=== PATIENT | female | born 1990 | race American Indian/Alaskan Native ===

== ENCOUNTER 2017-08-24 22:09 | Emergency (ER) | payer MEDICAID, OTHER ==
[2017-08-24 22:33] VITALS: BP 139/78
[2017-08-24 23:13] LABS: ANION GAP 8.8; CHLORIDE,CL 107 mmol/L (101-111); SODIUM,NA 138 mmol/L (135-145)
--- NOTE | 2017-08-24 23:41 | EDM.PDOC ---
ED HPI GENERAL MEDICAL PROBLEM - General Chief Complaint: General Stated Complaint: [id number] LUNG PAIN Time Seen by Provider: 08/24/17 22:30 Source of Information: Reports: Patient History Limitations: Reports: No Limitations - History of Present Illness INITIAL COMMENTS - FREE TEXT/NARRATIVE: c/o of right upper chest sharp pain with breathing in, noticed first this am while stretching and yawning. No recent cold or cough. No hx PE. No shortness of breath , no fever, no injury. Pain does not radiate. Has not tried anything to alleviate discomfort Right Upper Chest Pain Score (Numeric/FACES): 5 - Related Data Allergies Allergy/AdvReac Type Severity Reaction Status Date / Time amoxicillin Allergy Rash Verified 08/24/17 22:33 Home Meds: Home Meds . 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 Musculoskeletal History: Reports: None Neurological History: Reports: None Psychiatric History: Reports: None Endocrine/Metabolic History: Reports: None Hematologic History: Reports: None Immunologic History: Reports: None Oncologic (Cancer) History: Reports: None Dermatologic History: Reports: None - Infectious Disease History Infectious Disease History: Reports: Chicken Pox - Past Surgical History Head Surgeries/Procedures: Reports: None Social & Family History - Tobacco Use Smoking Status *Q: Never Smoker Second Hand Smoke Exposure: Yes - Caffeine Use Caffeine Use: Reports: Coffee, Soda - Recreational Drug Use Recreational Drug Use: No ED ROS GENERAL - Review of Systems Review Of Systems: ROS reveals no pertinent complaints other than HPI. ED EXAM, GENERAL - Physical Exam Exam: See Below Exam Limited By: No Limitations General Appearance: Alert, No Apparent Distress Eye Exam: Bilateral Eye: EOMI Ears: Normal External Exam Nose: Normal Inspection Throat/Mouth: Normal Inspection Head: Atraumatic, Normocephalic Neck: Normal Inspection, Full Range of Motion Respiratory/Chest: No Respiratory Distress, Lungs Clear, Normal Breath Sounds Cardiovascular: Normal Peripheral Pulses, Regular Rate, Rhythm GI/Abdominal: Normal Bowel Sounds, Soft Back Exam: Normal Inspection Extremities: Normal Inspection, Normal Range of Motion Neurological: Alert, Oriented, Normal Cognition Psychiatric: Normal Affect Skin Exam: Warm, Dry, Intact, Normal Color Course - Vital Signs Last Recorded V/S: Last Vital Signs Temp 97.4 F 08/24/17 22:22 Pulse 61 08/24/17 22:22 Resp 18 08/24/17 22:22 BP 139/78 08/24/17 22:22 Pulse Ox 99 08/24/17 22:22 - Orders/Labs/Meds Orders: Active Orders 24 hr Category Date Time Status CXR [Chest 2V] [CR] Urgent Exams 08/24/17 22:38 Taken Labs: Laboratory Tests 08/24/17 08/24/17 08/24/17 Range/Units 22:48 22:48 22:48 WBC 9.3 (5.0-10.0) 10^3/uL RBC 4.46 (4.2-5.4) 10^6/uL Hgb 11.4 L (12.0-16.0) g/dL Hct 36.1 L (37.0-47.0) % MCV 80.9 (80-100) fL MCH 25.6 L (27.0-34.0) pg MCHC 31.6 L (33.0-35.0) g/dL Plt Count 340 (150-450) 10^3/uL Neut % (Auto) 54.8 (42.2-75.2) % Lymph % (Auto) 32.8 (20.5-50.1) % Wright % (Auto) 6.3 (2-8) % Eos % (Auto) 5.8 H (1.0-3.0) % Baso % (Auto) 0.3 (0.0-1.0) % D-Dimer, Quantitative 285 (0-400) ng/mL Sodium 138 (135-145) mmol/L Potassium 3.8 (3.6-5.0) mmol/L Chloride 107 (101-111) mmol/L Carbon Dioxide 26.0 (21.0-31.0) mmol/L Anion Gap 8.8 BUN 14 (7-18) mg/dL Creatinine 0.7 (0.6-1.3) mg/dL Est Cr Clr Drug Dosing 121.78 mL/min Estimated GFR (MDRD) > 60 BUN/Creatinine Ratio 20.00 Glucose 131 H (74-105) mg/dL Calcium 9.0 (8.4-10.2) mg/dl Total Bilirubin 0.3 (0.2-1.0) mg/dL AST 27 (10-42) IU/L ALT 23 (10-60) IU/L Alkaline Phosphatase 68 (42-121) IU/L Total Protein 8.6 H (6.7-8.2) g/dl Albumin 4.0 (3.2-5.5) g/dl Globulin 4.6 Albumin/Globulin Ratio 0.87 - Radiology Interpretation Free Text/Narrative:: CXR: Poor inspiratory effort, bibasilar subsegmental atelectasis Departure - Departure Time of Disposition: 23:39 Disposition: Home, Self-Care 01 Condition: Good Clinical Impression: Right-sided chest wall pain - Discharge Information Instructions: Nonspecific Chest Pain, [id number] Referrals: PCP,None [Primary Care Provider] - Forms: ED Department Discharge Additional Instructions: ibuprofen 600mg one every 6 hours as needed deep breathing every hour follow up if symptoms worsen - My Orders Last 24 Hours: My Active Orders 08/24/17 22:38 CXR [Chest 2V] [CR] Urgent - Assessment/Plan Last 24 Hours: My Active Orders 08/24/17 22:38 CXR [Chest 2V] [CR] Urgent
== END 2017-08-24 23:44 | disposition home or self-care (01) ==
LOC: DL.ED 22:09
DX: R07.89 Other chest pain (principal); Z88.1 Allergy status to other antibiotic agents
CPT/HCPCS: 36415; 71046; 80053; 85025; 85379; 99283; 99284

== ENCOUNTER 2019-02-18 22:42 | Emergency (ER) | payer MEDICAID, OTHER ==
[2019-02-18 23:48] VITALS: BP 133/83; PULSE 95
--- NOTE | 2019-02-19 00:25 | EDM.PDOC ---
ED HPI GENERAL MEDICAL PROBLEM - General Chief Complaint: Chest Pain Stated Complaint: CHEST PAIN - History of Present Illness Treatments CHEST PAIN COORDINATOR: Reports: Other (see below) Other Treatments CHEST PAIN COORDINATOR: none Left Anterior Chest Pain Score (Numeric/FACES): 0 - Related Data Allergies Allergy/AdvReac Type Severity Reaction Status Date / Time amoxicillin Allergy Rash Verified 02/18/19 23:49 Home Meds: Home Meds . 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 Musculoskeletal History: Reports: Other (See Below) Other Musculoskeletal History: hx rt arm fx and rt foot fx Neurological History: Reports: None Psychiatric History: Reports: None Endocrine/Metabolic History: Reports: None Hematologic History: Reports: None Immunologic History: Reports: None Oncologic (Cancer) History: Reports: None Dermatologic History: Reports: None - Infectious Disease History Infectious Disease History: Reports: Chicken Pox - Past Surgical History Head Surgeries/Procedures: Reports: None Social & Family History - Family History Family Medical History: Noncontributory - Caffeine Use Caffeine Use: Reports: Coffee Course - Vital Signs Last Recorded V/S: Last Vital Signs Temp 98.8 F 02/18/19 23:44 Pulse 95 02/18/19 23:44 Resp 18 02/18/19 23:44 BP 133/83 02/18/19 23:44 Pulse Ox 98 02/18/19 23:44 Departure - Departure Disposition: Left Without Being Seen 07 Forms: ED Department Discharge Sepsis Event Note - Evaluation Sepsis Screening Result: No Definite Risk - Focused Exam Vital Signs: Vital Signs Temp Pulse Resp BP Pulse Ox 02/18/19 23:44 98.8 F 95 18 133/83 98 Date Exam was Performed: 02/19/19 Time Exam was Performed: 06:02
== END 2019-02-19 01:10 | disposition left against medical advice (07) ==
LOC: DL.ED 22:42
DX: Z53.29 Procedure and treatment not carried out because of patient's decision for other reasons (principal); R07.9 Chest pain, unspecified
CPT/HCPCS: 99284

== ENCOUNTER 2020-11-02 22:03 | Emergency (ER) | payer MEDICAID ==
--- NOTE | 2020-11-02 22:45 | EDM.PDOC ---
ED HPI GENERAL MEDICAL PROBLEM - General Chief Complaint: Upper Extremity Injury/Pain Stated Complaint: INJURED HAND Time Seen by Provider: 11/02/20 22:40 Source of Information: Reports: Patient - History of Present Illness INITIAL COMMENTS - FREE TEXT/NARRATIVE: Pt is here for a right hand injury. She got upset at someone and punched a wall around 0800 this morning. She still has feeling in her hand and fingers, but has been unable to bend her fingers since the incident. She denies any previous injury to the hand, but did break her wrist a long time ago. She denies any other injury. Right Hand Pain Score (Numeric/FACES): 7 - Related Data Allergies Allergy/AdvReac Type Severity Reaction Status Date / Time amoxicillin Allergy Rash Verified 11/02/20 22:46 Home Meds: Home Meds . 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 Musculoskeletal History: Reports: Other (See Below) Other Musculoskeletal History: hx rt arm fx and rt foot fx Neurological History: Reports: None Psychiatric History: Reports: None Endocrine/Metabolic History: Reports: None Hematologic History: Reports: Anemia Immunologic History: Reports: None Oncologic (Cancer) History: Reports: None Dermatologic History: Reports: None - Infectious Disease History Infectious Disease History: Reports: Chicken Pox - Past Surgical History Head Surgeries/Procedures: Reports: None GI Surgical History: Reports: Cholecystectomy Social & Family History - Family History Family Medical History: No Pertinent Family History - Caffeine Use Caffeine Use: Reports: Coffee, Soda Review of Systems - Review of Systems Review Of Systems: Comprehensive ROS is negative, except as noted in HPI. ED EXAM, GENERAL - Physical Exam Exam: See Below Exam Limited By: No Limitations General Appearance: Alert, WD/WN, No Apparent Distress Eye Exam: Bilateral Eye: Normal Inspection Ears: Normal External Exam Nose: Normal Inspection Throat/Mouth: Normal Voice, No Airway Compromise Head: Atraumatic, Normocephalic Neck: Supple, Non-Tender Respiratory/Chest: No Respiratory Distress, Lungs Clear, Normal Breath Sounds, No Accessory Muscle Use Cardiovascular: Normal Peripheral Pulses, Regular Rate, Rhythm, No Murmur GI/Abdominal: Soft, Non-Tender (Female) Exam: Deferred Rectal (Female) Exam: Deferred Back Exam: Normal Inspection, Full Range of Motion Extremities: Normal Capillary Refill, Other (right hand swelling on ulnar side with deformity noted. Neurovascularly intact in distal hand and fingers. ) Neurological: Alert, Oriented, Normal Cognition, No Motor/Sensory Deficits Psychiatric: Normal Affect, Normal Mood Skin Exam: Warm, Dry, Intact, Normal Color ED TRAUMA EXTREMITY PROCEDURES - Splinting Right Upper Extremity Splint Site: right hand/forearm Pre-Procedure NV Status: Normal Post-Procedure NV Status: Normal Splint Material: Fiberglass Splint Design: Gutter (ulnar) Applied & Form Fitted By: Provider Provider Post-Splint Application NV Check: NV Status Normal, Good Position Complications: No Course - Vital Signs Last Recorded V/S: Last Vital Signs Temp 97.9 F 11/02/20 22:35 Pulse 100 11/02/20 22:35 Resp 16 11/02/20 22:35 BP 139/98 H 11/02/20 22:35 Pulse Ox 96 11/02/20 22:35 - Re-Assessments/Exams Free Text/Narrative Re-Assessment/Exam: Boxers fracture of right 5th metacarpal reviewed with pt. Ulnar splint made. 11/02/20 23:03 Departure - Departure Time of Disposition: 23:17 Disposition: Home, Self-Care 01 Condition: Good Clinical Impression: Fracture of metacarpal bone Qualifiers: Encounter type: initial encounter Metacarpal bone: fifth Fracture type: closed Metacarpal location: shaft Fracture alignment: displaced Laterality: right Qualified Code(s): S62.326A - Displaced fracture of shaft of fifth metacarpal bone, right hand, initial encounter for closed fracture - Discharge Information *PRESCRIPTION DRUG MONITORING PROGRAM REVIEWED*: Not Applicable *COPY OF PRESCRIPTION DRUG MONITORING REPORT IN PATIENT DENNY: Not Applicable Instructions: Cast or Splint Care, Adult, [id number], Metacarpal Fracture, [id number] Forms: ED Department Discharge Additional Instructions: Call your primary care provider tomorrow and schedule a follow up visit. Sepsis Event Note (ED) - Focused Exam Vital Signs: Vital Signs Temp Pulse Resp BP Pulse Ox 11/02/20 22:35 97.9 F 100 16 139/98 H 96
[2020-11-02 22:49] VITALS: BP 139/98; PULSE 100
--- NOTE | 2020-11-02 23:15 | CR ---
PROCEDURE INFORMATION: Exam: XR Right Hand Exam date and time: 11/02/2020 10:54 PM Age: 29 years old Clinical indication: Other: Pain; Additional info: Hand injury, punched a wall TECHNIQUE: Imaging protocol: XR Right hand. Views: 3 or more views. COMPARISON: No relevant prior studies available. FINDINGS: Bones/joints: There is a transverse fracture of the distal shaft of the 5th metacarpal . Mild apex dorsal angulation. No additional fracture seen. Ulnar minus deformity. Soft tissues: Soft tissue swelling on the dorsum. IMPRESSION: Distal 5th metacarpal fracture.
== END 2020-11-02 23:27 | disposition home or self-care (01) ==
LOC: DL.ED 22:03
DX: S62.326A Displaced fracture of shaft of fifth metacarpal bone, right hand, initial encounter for closed fracture (principal); Z88.0 Allergy status to penicillin; X58.XXXA Exposure to other specified factors, initial encounter
CPT/HCPCS: 29125; 73130-RT; 99283-25

== ENCOUNTER 2020-11-07 18:27 | Emergency (ER) | payer MEDICAID ==
[~2020-11-07 18:27] MED LIST: Diphtheria,Pertussis(Acell),Tetanus Vaccine 0.5 ML Syringe IM ONE
[2020-11-07 18:33] VITALS: BP 137/66; PULSE 86
[2020-11-07] MEDS ORDERED: Bacitracin Oint 1 GM U/D Packet TOP ONE (18:46)
[2020-11-07] MEDS ORDERED: Lidocaine 1% 30 ML SDV INJECT ONE (18:46)
--- NOTE | 2020-11-07 18:47 | EDM.PDOC ---
<Milena Olivas - Last Filed: 11/07/20 19:05> ED HPI GENERAL MEDICAL PROBLEM - General Chief Complaint: Lower Extremity Injury/Pain Stated Complaint: AMBULANCE Time Seen by Provider: 11/07/20 18:30 Source of Information: Reports: Patient History Limitations: Reports: No Limitations - History of Present Illness INITIAL COMMENTS - FREE TEXT/NARRATIVE: Patient is a 29-year-old female who presents to ER with [facility] with complaint of laceration to the right lower leg. Patient states she was cutting wood for a ceremony with a chain saw when the log slipped causing the chain saw to press against her leg. Patient states she is not up-to-date on her tetanus vaccination. Denies any other injuries. EMS did report patient glucose was in the 350 range and patient has no history of diabetes. 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 Musculoskeletal History: Reports: Other (See Below) Other Musculoskeletal History: hx rt arm fx and rt foot fx Neurological History: Reports: None Psychiatric History: Reports: None Endocrine/Metabolic History: Reports: None Hematologic History: Reports: Anemia Immunologic History: Reports: None Oncologic (Cancer) History: Reports: None Dermatologic History: Reports: None - Infectious Disease History Infectious Disease History: Reports: Chicken Pox - Past Surgical History Head Surgeries/Procedures: Reports: None HEENT Surgical History: Reports: Oral Surgery GI Surgical History: Reports: Cholecystectomy Social & Family History - Family History Family Medical History: No Pertinent Family History - Tobacco Use Tobacco Use Status *Q: Never Tobacco User - Caffeine Use Caffeine Use: Reports: Coffee, Energy Drinks - Recreational Drug Use Recreational Drug Use: No Review of Systems - Review of Systems Review Of Systems: Comprehensive ROS is negative, except as noted in HPI. ED EXAM, GENERAL - Physical Exam Exam: See Below Exam Limited By: No Limitations General Appearance: Alert, WD/WN, Mild Distress Eye Exam: Bilateral Eye: EOMI, Normal Inspection Ears: Normal External Exam, Hearing Grossly Normal Nose: Normal Inspection Throat/Mouth: Normal Inspection, Normal Voice, No Airway Compromise Head: Atraumatic, Normocephalic Neck: Normal Inspection, Supple, Non-Tender, Full Range of Motion Respiratory/Chest: No Respiratory Distress, Lungs Clear, Normal Breath Sounds, No Accessory Muscle Use, Chest Non-Tender Cardiovascular: Normal Peripheral Pulses, Regular Rate, Rhythm, No Edema, No Gallop, No JVD, No Murmur, No Rub Peripheral Pulses: 2+: Radial (L), Radial (R) GI/Abdominal: Normal Bowel Sounds, Soft, Non-Tender (Female) Exam: Deferred Rectal (Female) Exam: Deferred Back Exam: Normal Inspection, Full Range of Motion, NT Extremities: Normal Inspection, Normal Range of Motion, Non-Tender, Normal Capillary Refill, No Pedal Edema Neurological: Alert, Oriented, CN II-XII Intact, Normal Cognition, Normal Gait, Normal Reflexes, No Motor/Sensory Deficits Psychiatric: Normal Affect, Normal Mood Skin Exam: Warm, Dry, Other (5cm laceration to anterior right miranda) Lymphatic: No Adenopathy Course - Re-Assessments/Exams Free Text/Narrative Re-Assessment/Exam: 11/07/20 19:05 Care turned over to DEREK Garcia at shift change. Departure - Departure Disposition: Home, Self-Care 01 Clinical Impression: Contact with chainsaw as cause of accidental injury, Hyperglycemia Laceration of right lower extremity Qualifiers: Encounter type: initial encounter Qualified Code(s): S81.811A - Laceration without foreign body, right lower leg, initial encounter - Discharge Information Instructions: Laceration Care, Adult Forms: ED Department Discharge Additional Instructions: 1.) Follow up with any primary care facility for suture removal in seven days. 2.) You may take ibuprofen (Motrin/Advil) 400-800mg every six hours, as pain and swelling persist. You may also take acetaminophen (Tylenol) 650-1000mg every six hours, as pain persists. You may stagger these medications so you are taking a dose every three hours. 3.) Keep the wound clean and dry; You may cover it with a large bandage as drainage continues. 4.) Follow up with your primary care provider, or return to the emergency department, with any increase in pain, redness, swelling, or nunn/white drainage. 5.) Follow up with your primary care provider in 7 days for repeat lab work, including glucose recheck. <Kitty Wyman - Last Filed: 11/08/20 19:36> ED TRAUMA EXTREMITY PROCEDURES - Laceration/Wound Repair Right Middle Anterior Midline Distal Leg Lac/Wound Length In cm: 3.5 Appearance: Irregular, Mildly Contaminated Distal NVT: Neuro & Vascular Intact, No Tendon Injury Anesthetic Type: Local Local Anesthesia - Lidocaine (Xylocaine): 1% Plain Local Anesthetic Volume: Other (10) Skin Prep: Chlorhexidine (Hibiciens), Saline, Sterile Drape Saline Irrigation (cc's): 80 Exploration/Debridement/Repair: Wound Explored, In a Bloodless Field, Explored to Base, Moderate Debridement, Foreign Material Removed, Wound Margins Revised, Multiple Flaps Aligned Closed With: Sutures Suture Size: 4-0 # of Sutures: 8 Suture Type: Prolene Drain Placement: No Sterile Dressing Applied: Nurse Tetanus Status Addressed: Yes Complications: No Course - Vital Signs Last Recorded V/S: Last Vital Signs Temp 98.8 F 11/07/20 18:30 Pulse 86 11/07/20 18:30 Resp 18 11/07/20 18:30 BP 137/66 11/07/20 18:30 Pulse Ox 97 11/07/20 18:30 - Orders/Labs/Meds Labs: Laboratory Tests 11/07/20 11/07/20 Range/Units 18:44 18:44 WBC 8.9 (5.0-10.0) 10^3/uL RBC 4.36 (4.2-5.4) 10^6/uL Hgb 11.2 L (12.0-16.0) g/dL Hct 34.6 L (37.0-47.0) % MCV 79.4 L (80-100) fL MCH 25.7 L (27.0-34.0) pg MCHC 32.4 L (33.0-35.0) g/dL Plt Count 291 D (150-450) 10^3/uL Neut % (Auto) 59.2 (42.2-75.2) % Lymph % (Auto) 30.5 (20.5-50.1) % [place] % (Auto) 6.0 (2-8) % Eos % (Auto) 4.0 H (1.0-3.0) % Baso % (Auto) 0.3 (0.0-1.0) % Sodium 131 L (136-145) mmol/L Potassium 3.9 (3.5-5.1) mmol/L Chloride 98 (98-107) mmol/L Carbon Dioxide 25 (21-32) mmol/L Anion Gap 11.9 (7-13) mEq/L BUN 14 (7-18) mg/dL Creatinine 0.97 (0.55-1.02) mg/dL Est Cr Clr Drug Dosing 84.01 mL/min Estimated GFR (MDRD) > 60 BUN/Creatinine Ratio 14.4 (No establ ref range) Glucose 392 H (70-99) mg/dL Calcium 8.6 (8.5-10.1) mg/dL Total Bilirubin 0.4 (0.2-1.0) mg/dL AST 20 (15-37) U/L ALT 31 (14-59) U/L Alkaline Phosphatase 84 (46-116) U/L Total Protein 7.7 (6.4-8.2) g/dL Albumin 3.2 L (3.4-5.0) g/dL Globulin 4.5 Albumin/Globulin Ratio 0.71 Meds: Medications Discontinued Medications Generic Name Dose Route Start Last Admin Trade Name Freq PRN Reason Stop Dose Admin Bacitracin 1 dose 11/07/20 18:46 11/07/20 18:54 Bacitracin Oint 1 Gm U/D Packet TOP 11/07/20 18:47 1 dose ONETIME ONE Administration Diphtheria/Tetanus/Acell Pertussis 0.5 ml 11/07/20 18:25 11/07/20 18:31 Diphtheria,Pertussis(Acell),Tetanus Vaccine 0.5 Ml Syringe IM 11/07/20 18:26 0.5 ml .ONCE ONE Administration Lidocaine HCl 30 ml 11/07/20 18:46 11/07/20 18:54 Lidocaine 1% 30 Ml Sdv INJECT 11/07/20 18:47 30 ml ONETIME ONE Administration - Re-Assessments/Exams Free Text/Narrative Re-Assessment/Exam: 09/24/21 Care of patient assumed by freelance writer from DEREK Sams at 1900. Moderate debridement of wound performed prior to laceration repair. Laceration sutured without complication. Supportive cares, as well as red flag signs and symptoms which would warrant reevaluation discussed. Patient instructed on follow up for suture removal in 7 days. Patient verbalized understanding and agreement with the plan of care. Departure - Departure Time of Disposition: 19:55 Condition: Good - Discharge Information *PRESCRIPTION DRUG MONITORING PROGRAM REVIEWED*: Not Applicable *COPY OF PRESCRIPTION DRUG MONITORING REPORT IN PATIENT DENNY: Not Applicable
--- NOTE | 2020-11-07 19:01 | CR ---
PROCEDURE INFORMATION: Exam: XR Right Tibia and Fibula Exam date and time: 11/07/2020 6:36 PM Age: 29 years old Clinical indication: Other: Marker points to area of laceration; Additional info: Chain saw to lower leg TECHNIQUE: Imaging protocol: XR Right tibia and fibula. Views: 2 views. COMPARISON: No relevant prior studies available. FINDINGS: Bones/joints: No fracture. No malalignment. Soft tissues: Anterior soft tissue trauma noted. No radiopaque foreign bodies. IMPRESSION: No acute osseous abnormality
[2020-11-07 19:08] LABS: ANION GAP 11.9 mEq/L (7-13); CHLORIDE,CL 98 mmol/L (98-107); SODIUM,NA 131 mmol/L (136-145)
== END 2020-11-07 20:05 | disposition home or self-care (01) ==
LOC: DL.ED 18:27
DX: S81.811A Laceration without foreign body, right lower leg, initial encounter (principal); R73.9 Hyperglycemia, unspecified; Z88.0 Allergy status to penicillin; Z23 Encounter for immunization; W29.3XXA Contact with powered garden and outdoor hand tools and machinery, initial encounter
CPT/HCPCS: 12002; 36415; 73590-RT; 80053; 85025; 90471; 90715; 99285-25

== ENCOUNTER 2022-03-15 23:49 | Emergency (ER) | payer MEDICAID ==
[2022-03-16 01:07] VITALS: BP 139/87; PULSE 97
[2022-03-16 01:14] LABS: METHAMPHETAMINES,URINE NEGATIVE (NEGATIVE)
[2022-03-16 01:15] LABS: AMPHETAMINES,URINE NEGATIVE (NEGATIVE); BARBITURATES,URINE NEGATIVE (NEGATIVE); BENZODIAZEPINE,URINE NEGATIVE (NEGATIVE); MDMA (ECSTASY), URINE NEGATIVE (NEGATIVE); METHADONE,URINE NEGATIVE (NEGATIVE); OPIATES,URINE NEGATIVE (NEGATIVE); OXYCODONE,URINE NEGATIVE (NEGATIVE); PHENCYCLIDINE,URINE NEGATIVE (NEGATIVE); TCA,URINE NEGATIVE (NEGATIVE)
[2022-03-16 01:20] LABS: ANION GAP 9.7 mEq/L (7-13); CHLORIDE,CL 101 mmol/L (98-107); SODIUM,NA 135 mmol/L (136-145)
[2022-03-16 01:23] LABS: ESTIMATED GFR 68 mL/min (>=60)
[2022-03-16 01:30] LABS: CORONAVIRUS COVID-19 NAA NEGATIVE (NEGATIVE)
[2022-03-16] MEDS ORDERED: Sodium Chloride 0.9% 1,000 ML IV ONE (02:18)
== END 2022-03-16 03:11 | disposition home or self-care (01) ==
LOC: DL.ED 23:49
DX: M79.601 Pain in right arm (principal); M79.602 Pain in left arm; M79.673 Pain in unspecified foot; R07.0 Pain in throat; R73.9 Hyperglycemia, unspecified; Z88.0 Allergy status to penicillin; Z20.822 Contact with and (suspected) exposure to COVID-19
CPT/HCPCS: 0240U; 36415; 80053; 80305; 81003; 81025; 83605; 84550; 85025; 87040; 96360; 99283; J7030

== ENCOUNTER 2022-11-20 19:15 | Emergency (ER) | payer MEDICAID ==
[2022-11-20 19:44] VITALS: BP 160/81; PULSE 93
[2022-11-20] MEDS ORDERED: Ketorolac 30 MG/ML SDV IM ONE (20:34)
[2022-11-20] MEDS ORDERED: Take Home: Cyclobenzaprine 10 MG Tab, 4 Tab Pack PO ONE (20:35)
== END 2022-11-20 21:26 | disposition home or self-care (01) ==
LOC: DL.ED 19:15
DX: M46.1 Sacroiliitis, not elsewhere classified (principal); E11.9 Type 2 diabetes mellitus without complications; Z79.82 Long term (current) use of aspirin; Z79.899 Other long term (current) drug therapy; Z88.1 Allergy status to other antibiotic agents
CPT/HCPCS: 96372; 99283; A9270-GY; J1885